=== PATIENT | male | born 1955 | race Two or more races ===

== ENCOUNTER 2024-08-22 13:39 | Inpatient (IN) | payer OTHER, MEDICAID ==
[~2024-08-22] VITALS: Ht 175.3 cm; Wt 81.8 kg
--- NOTE | 2024-08-22 14:16 | ECG ---
[facility] Test Date: 2024-08-22 Test Time: 14:15:40 Pat Name: MARY RO Department: ER Room: 0221T Gender: M Ground Host/Hostess: GP : 1955 Requested By: SHRUTI CALZADA Order Number: [id number] Reading MD: Chris Mora Measurements Intervals [place] Rate: 50 P: -36 OK: 134 QRS: 34 QRSD: 85 T: 17 QT: 511 QTc: 466 Interpretive Statements Sinus rhythm Minimal ST depression, inferior leads Electronically Signed On 08-28-2024 11:16:32 PDT by Chris Mora Please click the below link to view image of tracing.
--- NOTE | 2024-08-22 14:22 | ED.PDOC ---
History of Present Illness HPI Comments 68-year-old male with PMHx DM, HTN, Dialysis presents with a chief complaint of weakness. Patient was just released from [facility] after being there for nearly a week. Patient did not qualify for a SNF after discharge and was instead sent home. Niece states that there is no one at home able to take care of patient. Patient reports feeling weak still and is in need of dialysis today. No other symptoms or modifying factors present at this time. Chief Complaint: General Weakness Time Seen by MD: 13:48 Primary Care Provider: ULICES Allergies: Coded Allergies: NO KNOWN ALLERGIES (Unverified , 08/22/24) Information Source: Patient, Relative Mode of Arrival: Wheelchair Severity: Moderate Timing: Days Duration: Since onset Past Medical History PAST MEDICAL HISTORY: DM, ESRD, HTN Surgical History (Other): left arm avf Family History Family History: Reviewed,noncontributory to illness, No family hx of Cancer, No family hx of DM, No family hx of Heart naeem, No family hx of HTN, No family hx ofKidney naeem, No family hx of Liver naeem, No family hx of Lung naeem, No family hx of Stroke Social History Smoker: Non-Smoker Alcohol: Denies ETOH Use Drugs: Denies Drug Use Constitutional: reports: weakness; denies: chills, diaphoresis, fatigue, fever, malaise, sweats, others EENTM: denies: blurred vision, double vision, ear bleeding, ear discharge, ear drainage, ear pain, ear ringing, eye pain, eye redness, hearing loss, mouth pain, mouth swelling, nasal discharge, nose bleeding, nose congestion, nose pain, photophobia, tearing, throat pain, throat swelling, voice changes, others Respiratory: reports: SOB at rest; denies: cough, hemoptysis, orthopnea, shortness of breath, SOB with excertion, stridor, wheezing, others Cardiovascular: denies: chest pain, dizzy spells, diaphoresis, Dyspnea on exertion, edema, irregular heart beat, left arm pain, lightheadedness, palpitations, PND, syncope, others Gastrointestinal: denies: abdomen distended, abdominal pain, blood streaked bowels, constipated, diarrhea, dysphagia, difficulty swallowing, hematemesis, melena, nausea, poor appetite, poor fluid intake, rectal bleeding, rectal pain, vomiting, others Genitourinary: denies: burning, dysuria, flank pain, frequency, hematuria, incontinence, penile discharge, penile sore, pain, testicle pain, testicle s welling, urgency, others Neurological: denies: dizziness, fainting, headache, left sided numbness, left sided weakness, numbness, paresthesia, pre-existing deficit, right sided numbness, right sided weakness, seizure, speech problems, tingling, tremors, weakness, others Musculoskeletal: denies: back pain, gout, joint pain, joint swelling, muscle pain, muscle stiffness, neck pain, others Integumetry: denies: bruises, change in color, change in hair/nails, dryness, laceration, lesions, lumps, rash, wounds, others Allergic/Immunocompromised: denies: Difficulty Healing, Frequent Infections, Hives, Itching, others Hematologic/Lymphatic: denies: anemia, blood clots, easy bleeding, easy bruising, swollen glands, others Endocrine: denies: excessive hunger, excessive sweating, excessive thirst, excessive urination, flushing, intolerance to cold, intolerance to heat, unexplained weight gain, unexplained weight loss, others Psychiatric: denies: anxiety, bipolar disorder, depression, hopeless, panic disorder, schizophrenia, sleepless, suicidal, others All Other Systems: Reviewed and Negative Physical Exam General Appearance: No Apparent Distress, Normal HEENT: Normal ENT Inspection, Pharynx Normal, TMs Normal Neck: Full Range of Motion, Non-Tender, Normal, Normal Inspection Respiratory: Chest Non-Tender, Lungs Clear, No Accessory Muscle Use, No Respiratory Distress, Normal Breath Sounds Cardiovascular: No Edema, No JVD, No Murmur, No Gallop, Normal Peripheral Pulses, Regular Rate/Rhythm Breast Exam: Deferred Gastrointestinal: No Organomegaly, Non Tender, No Pulsatile Mass, Normal Bowel Sounds, Soft Genitalia: Deferred Pelvic: Deferred Rectal: Deferred Extremities: No calf tenderness, Normal capillary refill, Normal inspection, N ormal range of motion, Non-tender, No pedal edema Musculoskeletal : Apperance: Normal Neurologic: Alert, filter tender II-XII nml as Tested, No Motor Deficits, Normal Affect, Normal Mood, No Sensory Deficits Cerebellar Function: Normal Reflexes: Normal Skin: Dry, Normal Color, Warm, Other (left arm AVF with bruits and thrills) Lymphatic: No Adenopathy Was a procedure done? Was a procedure done?: No Differential Dx Considerations may include: hypotension, failure to thrive, hypoglycemia, electrolyte disorders, arrhythmias X-Ray, Labs, Meds, VS Vital Signs Date Time Temp Pulse Resp B/P (MAP) Pulse Ox O2 Delivery O2 Flow Rate FiO2 08/22/24 16:45 18 95 Nasal Cannula* 2 28 08/22/24 16:10 47 18 92 Nasal Cannula* 2 28 08/22/24 15:58 47 18 97/56 (70) 92 08/22/24 14:15 50 08/22/24 13:39 97.7 51 16 120/60 (80) 93 97.7 Lab Test 08/22/24 14:24 08/22/24 14:12 Range/Units White Blood Count 6.9 4.4-10.8 10^3/uL Red Blood Count 2.73 L 4.5-5.90 10^6/uL Hemoglobin 9.1 L 13.5-17.5 g/dL Hematocrit 26.7 L 41.0-53.0 % Mean Corpuscular Volume 97.8 80.0-100.0 fL Mean Corpuscular Hemoglobin 33.2 H 28.0-32.0 pg Mean Corpuscular Hemoglobin Concent 34.0 32.0-36.0 g/dL Red Cell Distribution Width 14.8 H 11.8-14.3 % Platelet Count 150 140-450 10^3/uL Mean Platelet Volume 8.2 6.9-10.8 fL Neutrophils (%) (Auto) 64.3 37.0-80.0 % Lymphocytes (%) (Auto) 15.6 10.0-50.0 % Monocytes (%) (Auto) 10.2 0.0-12.0 % Eosinophils (%) (Auto) 8.4 H 0.0-7.0 % Basophils (%) (Auto) 1.5 0.0-2.0 % Neutrophils # (Auto) 4.4 1.6-8.6 10 ^3/uL Lymphocytes # (Auto) 1.1 0.4-5.4 10 ^3/uL Monocytes # (Auto) 0.7 0-1.3 10 ^3/uL Eosinophils # (Auto) 0.6 0-0.8 10 ^3/uL Basophils # (Auto) 0.1 0-0.2 10 ^3/uL Nucleated Red Blood Cells 0.1 % Sodium Level 138 136-145 mmol/L Potassium Level 5.9 *H 3.5-5.1 mmol/L Chloride Level 100 98-107 mmol/L Carbon Dioxide Level 27 20-31 mmol/L Anion Gap 11 5-15 Blood Urea Nitrogen 70 H 9-23 mg/dL Creatinine 10.03 *H 0.700-1.30 mg/dL Glomerular Filtration Rate Calc 5 >90 mL/min BUN/Creatinine Ratio 7.0 L 10.0-20.0 Serum Glucose 87 74-106 mg/dL Calcium Level 9.3 8.7-10.4 mg/dL Total Bilirubin < 0.2 L 0.2-1.0 mg/dL Aspartate Amino Transferase (AST) 12 L 13-40 U/L Alanine Aminotransferase (ALT) 13 7-40 U/L Alkaline Phosphatase 101 46-116 U/L Troponin I High Sensitivity 14 </=54 ng/L Total Protein 6.8 5.7-8.2 g/dL Albumin 4.0 3.2-4.8 g/dL POC Glucose 86 70-106 mg/dl Current Medications Medications (Trade) Dose Ordered Sig/Phani Route Start Time Stop Time Status Last Admin Albuterol (Ventolin Medneb) 20 mg ONCE ONCE NEB 08/22/24 16:00 08/22/24 16:33 DC 08/22/24 16:43 Calcium Gluconate/ Sodium Chloride 50 ml @ 120 mls/hr ONCE ONCE IV 08/22/24 16:00 08/22/24 16:33 DC 08/22/24 16:42 Time of 1ST Reevaluation: 16:51 Reevaluation 1ST: Unchanged Consultation: Other (IM, nephrology) Patient Education/Counseling: Diagnosis, Treatment, Prognosis, Need For Follow Up Family Education/Counseling: Diagnosis, Treatment, Prognosis, Need For Follow Up Additional Information pt likely did not get HD before discharge from [facility], as his daughter reported. his weakness is worsened by the hyperkalemia. he also is volume overloaded with CHF. he will need HD, SW to reassess for eventual placement. i Spoke to Dr Barriga, and ordered Dr Pan to be consulted . pt will be admitted Departure 1 Departure Time of Disposition: 16:52 Impression: Primary Impression: Weakness Additional Impressions: CHF (congestive heart failure) Qualified Codes: I50.23 - Acute on chronic systolic (congestive) heart failure ESRF (end stage renal failure) Hyperkalemia Bradycardia Disposition: ADMITTED INPATIENT Admit to: Tele Condition: Serious Discharged With: Self, Relative Critical Care Note Critical Care Time?: Yes (55 min-critical care time only) Critical care comment: due to concerns for patient's condition deteriorating, the care required my highest level of attention and readiness to intervene. i assessed the patient's condition, ordered the proper tests and treatments, reassessed for response and reviewed the results. i communicated with medical personnel and formulated a plan of care. total critical care time does not include any procedures Stability Stability form required: No I personally scribed for SHRUTI CALZADA MD ([email or web address]) on 08/22/24 at 14:22. Electronically submitted by Pedro Pablo Knight ([email or web address]). SHRUTI CALZADA MD August 22, 2024 14:22
[2024-08-22 14:40] LABS: Basophils # (auto) 0.1 10 ^3/uL (0-0.2); Basophils % (auto) 1.5 % (0.0-2.0); Eosinophils # (auto) 0.6 10 ^3/uL (0-0.8); Eosinophils % (auto) 8.4 % (0.0-7.0); Hematocrit 26.7 % (41.0-53.0); Hemoglobin 9.1 g/dL (13.5-17.5); Lymphocytes # (auto) 1.1 10 ^3/uL (0.4-5.4); Lymphocytes % (auto) 15.6 % (10.0-50.0); Mean Corpuscular Hemoglobin 33.2 pg (28.0-32.0); Mean Corpuscular Volume 97.8 fL (80.0-100.0); Monocytes # (auto) 0.7 10 ^3/uL (0-1.3); Monocytes % (auto) 10.2 % (0.0-12.0); Neutrophils # (auto) 4.4 10 ^3/uL (1.6-8.6); Neutrophils % (auto) 64.3 % (37.0-80.0); Nucleated Red Blood Cells % 0.1 %; Platelet Count (auto) 150 10^3/uL (140-450); Red Blood Cells 2.73 10^6/uL (4.5-5.90); Red Cell Distribution Width 14.8 % (11.8-14.3); White Blood Cell 6.9 10^3/uL (4.4-10.8)
--- NOTE | 2024-08-22 14:50 | DVH ---
CHEST RADIOGRAPH Indication: weakness Technique: Single frontal view of the chest was obtained COMPARISON: None FINDINGS: Lines and Tubes: None Lungs: Diffuse increased interstitial prominence Pleura: No effusion. No pneumothorax. Cardiomediastinal contours: Cardiomegaly Bones: Unremarkable IMPRESSION: Pulmonary edema
[2024-08-22 14:58] LABS: Alanine Aminotransferase 13 U/L (7-40); Alkaline Phosphatase 101 U/L (46-116); Anion Gap 11 (5-15); Calcium 9.3 mg/dL (8.7-10.4); Carbon Dioxide 27 mmol/L (20-31); Chloride 100 mmol/L (98-107); Glucose 87 mg/dL (74-106); Sodium 138 mmol/L (136-145); Total Protein 6.8 g/dL (5.7-8.2)
[2024-08-22 15:00] LABS: Aspartate Aminotransferase 12 U/L (13-40); Bilirubin, Total < 0.2 mg/dL (0.2-1.0); Blood Urea Nitrogen 70 mg/dL (9-23)
[2024-08-22 15:01] LABS: Potassium 5.9 mmol/L (3.5-5.1)
[2024-08-22 16:10] VITALS: PULSE 47; RESP 18; O2SAT 92
[2024-08-22] MEDS: CALCIUM GLUC 1,000mg/50ml-NS 50 ML IV ONE (16:42)
[2024-08-22] MEDS: ALBUTEROL SULF 2.5 MG/0.5ML(0.5%) NEB SOLN NEB ONE (16:43)
[2024-08-22] MEDS: DEXTROSE (50%) 50ML SYRG IV ONE ×2 (16:56→20:44)
[2024-08-22] MEDS: SODIUM BICARB 8.4% 50Meq/50ml SYR INJ IV ONE (17:06)
[2024-08-22] MEDS: SODIUM ZIRCONIUM CYCL 10 GM PAK PO ONE (17:14)
[2024-08-22] MEDS ORDERED: ACETAMINOPHEN 325 MG TAB PO PRN (17:30)
[2024-08-22] MEDS ORDERED: MORPHINE SULFATE INJ 2 MG/ml SYRG IV PRN (17:30)
[2024-08-22] MEDS ORDERED: NITROGLYCERIN 0.4 MG SL TAB SL PRN (17:30)
[2024-08-22] MEDS: InsuLIN REG 1unit/0.01ml Soln (100units/ml) IV ONE (17:33)
--- NOTE | 2024-08-22 18:26 | DVHINCON2 ---
Date of service: August 22, [address] Uribe Reason for Consultation End-stage renal disease to manage hemodialysis History of Present Illness Patient is 68-year-old male with past medical history significant for end-stage renal disease on hemodialysis every Wednesday and Wednesday, diabetes mellitus type 2, chronic Congestive heart failure, hypertension and peripheral arterial disease who was recently discharged from [facility] presented to the [facility] with generalized weakness, Nephrology is consulted to manage his hemodialysis Past Medical History PAST MEDICAL HISTORY: DM, ESRD, HTN, chronic Congestive heart failure, Peripheral arterial disease Past Surgical History Left arm avf Allergies: Coded Allergies: NO KNOWN ALLERGIES (Unverified , 08/22/24) Current Medications Current Medications Medications (Trade) Dose Ordered Sig/Phani Route PRN Reason Start Time Stop Time Status Last Admin Acetaminophen (Tylenol Tablet) 325 mg Q4HP PRN PO MILD PAIN (1-3 PAIN SCALE) 08/22/24 17:30 Acetaminophen/ Hydrocodone Bitart ([place] 5/325MG Tab) 1 tab Q4HP PRN PO MODERATE PAIN (4-6 PAIN SCALE) 08/22/24 17:30 Nitroglycerin (Ntrostat Sublingual) 0.4 mg Q5MINP PRN SL FOR CHEST PAIN 08/22/24 17:30 Morphine Sulfate 2 mg Q30M PRN IV FOR CHEST PAIN 08/22/24 17:30 Zirconium Oxide (Lokelma) 10 gm Q8HR PO 08/22/24 22:00 08/23/24 06:41 Midodrine (Proamatine Tablet) 10 mg TID@0600,1200,1800 PO 08/23/24 06:00 08/23/24 06:41 Dextrose/Sodium Chloride 1,000 ml @ 50 mls/hr Q20H IV 08/22/24 20:15 UNV Dextrose 250 ml @ 50 mls/hr Q5H IV 08/22/24 20:15 08/23/24 06:42 Dopamine HCl/ Dextrose 250 ml @ 5.775 mls/ hr Q24H IV 08/22/24 21:00 08/22/24 21:36 DC Dopamine HCl/ Dextrose 250 ml @ 14.438 mls/ hr [id number] IV 08/22/24 21:45 08/22/24 21:36 Norepinephrine Bitartrate 250 ml @ 3.75 mls/hr Q24H IV 08/22/24 21:45 08/22/24 21:51 Review of Systems All 12 item review of systems reviewed with the patient nonsignificant except what is mentioned in the history of present illness H&P Exam Vital Signs/I&O Vital Sign Date Time Temp Pulse Resp B/P (MAP) Pulse Ox O2 Delivery O2 Flow Rate FiO2 08/23/24 10:15 50 142/71 (94) 100 08/23/24 07:00 13 08/23/24 03:00 96.9 96.9 08/22/24 19:41 Nasal Cannula* 2 28 Physical Exam Patient lying comfortably in bed Lungs clear to auscultation bilaterally Cardiac exam regular rate and rhythm GI soft nontender was normal Extremities no clubbing cyanosis or edema Neuro nonfocal Labs/Diagnostic Data Labs/Diagnostic Data Laboratory Tests Test 08/23/24 07:32 08/23/24 06:49 08/23/24 02:56 08/22/24 23:59 Range/Units White Blood Count 7.0 4.4-10.8 10^3/uL Red Blood Count 2.84 L 4.5-5.90 10^6/uL Hemoglobin 9.4 L 13.5-17.5 g/dL Hematocrit 28.0 #L 41.0-53.0 % Mean Corpuscular Volume 98.7 80.0-100.0 fL Mean Corpuscular Hemoglobin 33.2 H 28.0-32.0 pg Mean Corpuscular Hemoglobin Concent 33.6 32.0-36.0 g/dL Red Cell Distribution Width 15.1 H 11.8-14.3 % Platelet Count 148 140-450 10^3/uL Mean Platelet Volume 8.5 6.9-10.8 fL Neutrophils (%) (Auto) 69.8 37.0-80.0 % Lymphocytes (%) (Auto) 12.7 10.0-50.0 % Monocytes (%) (Auto) 11.0 0.0-12.0 % Eosinophils (%) (Auto) 5.4 0.0-7.0 % Basophils (%) (Auto) 1.1 0.0-2.0 % Neutrophils # (Auto) 4.9 1.6-8.6 10 ^3/uL Lymphocytes # (Auto) 0.9 0.4-5.4 10 ^3/uL Monocytes # (Auto) 0.8 0-1.3 10 ^3/uL Eosinophils # (Auto) 0.4 0-0.8 10 ^3/uL Basophils # (Auto) 0.1 0-0.2 10 ^3/uL Nucleated Red Blood Cells 0.0 % Sodium Level 135 #L 136-145 mmol/L Potassium Level 6.1 *H 3.5-5.1 mmol/L Chloride Level 96 L 98-107 mmol/L Carbon Dioxide Level 25 20-31 mmol/L Anion Gap 14 5-15 Blood Urea Nitrogen 72 H 9-23 mg/dL Creatinine 10.33 *H 0.700-1.30 mg/dL Glomerular Filtration Rate Calc 5 >90 mL/min BUN/Creatinine Ratio 7.0 L 10.0-20.0 Serum Glucose 231 #H 74-106 mg/dL Calcium Level 8.7 8.7-10.4 mg/dL Total Bilirubin < 0.2 L 0.2-1.0 mg/dL Aspartate Amino Transferase (AST) 13 13-40 U/L Alanine Aminotransferase (ALT) 11 7-40 U/L Alkaline Phosphatase 94 46-116 U/L Total Protein 6.6 5.7-8.2 g/dL Albumin 3.9 3.2-4.8 g/dL Thyroid Stimulating Hormone (TSH) 3.24 0.55-4.78 uIU/mL POC Glucose 253 H 225 H 185 H 70-106 mg/dl Test 08/22/24 22:35 08/22/24 21:20 08/22/24 21:05 08/22/24 20:47 Range/Units POC Glucose 138 H 123 H 81 70-106 mg/dl White Blood Count 6.1 4.4-10.8 10^3/uL Red Blood Count 2.51 L 4.5-5.90 10^6/uL Hemoglobin 8.3 L 13.5-17.5 g/dL Hematocrit 24.6 L 41.0-53.0 % Mean Corpuscular Volume 98.1 80.0-100.0 fL Mean Corpuscular Hemoglobin 33.2 H 28.0-32.0 pg Mean Corpuscular Hemoglobin Concent 33.9 32.0-36.0 g/dL Red Cell Distribution Width 14.8 H 11.8-14.3 % Platelet Count 135 L 140-450 10^3/uL Mean Platelet Volume 8.6 6.9-10.8 fL Neutrophils (%) (Auto) 58.7 37.0-80.0 % Lymphocytes (%) (Auto) 18.1 10.0-50.0 % Monocytes (%) (Auto) 12.5 H 0.0-12.0 % Eosinophils (%) (Auto) 9.6 H 0.0-7.0 % Basophils (%) (Auto) 1.1 0.0-2.0 % Neutrophils # (Auto) 3.6 1.6-8.6 10 ^3/uL Lymphocytes # (Auto) 1.1 0.4-5.4 10 ^3/uL Monocytes # (Auto) 0.8 0-1.3 10 ^3/uL Eosinophils # (Auto) 0.6 0-0.8 10 ^3/uL Basophils # (Auto) 0.1 0-0.2 10 ^3/uL Nucleated Red Blood Cells 0.1 % Sodium Level 140 136-145 mmol/L Potassium Level 5.3 H 3.5-5.1 mmol/L Chloride Level 99 98-107 mmol/L Carbon Dioxide Level 29 20-31 mmol/L Anion Gap 12 5-15 Blood Urea Nitrogen 70 H 9-23 mg/dL Creatinine 10.22 *H 0.700-1.30 mg/dL Glomerular Filtration Rate Calc 5 >90 mL/min BUN/Creatinine Ratio 6.8 L 10.0-20.0 Serum Glucose 110 H 74-106 mg/dL Calcium Level 9.0 8.7-10.4 mg/dL Total Bilirubin 0.2 0.2-1.0 mg/dL Aspartate Amino Transferase (AST) 12 L 13-40 U/L Alanine Aminotransferase (ALT) 11 7-40 U/L Alkaline Phosphatase 87 46-116 U/L Total Protein 6.1 5.7-8.2 g/dL Albumin 3.6 3.2-4.8 g/dL Test 08/22/24 20:20 08/22/24 20:01 08/22/24 19:54 08/22/24 17:28 Range/Units Blood Gas Specimen Type Arterial Blood Gas Sample Site Right brachial Blood Gas Patient Temperature 37.0 Arterial Blood Date Drawn [id number] Arterial Blood pH 7.377 7.350-7.450 Arterial Blood Partial Pressure CO2 43.5 35.0-48.0 mmHg Arterial Blood Partial Pressure O2 78.3 L 83.0-108.0 mmHg Arterial Blood HCO3 25.0 21.0-28.0 mmol/L Arterial Blood Oxygen Saturation 93.4 L 94.0-98.0 % Arterial Blood Base Excess -0.2 -2.0-3.0 mmol/L Arterial Blood Oxyhemoglobin 91.8 L 94.0-98.0 % Arterial Blood Carboxyhemoglobin 1.1 0.5-1.5 % Arterial Blood Methemoglobin 0.6 0.0-1.5 % Franklyn Test Yes Blood Gas Total Hemoglobin 8.80 L 13.5-17.5 g/dL Blood Gas Liter Flow 4.00 Blood Gas Modality Nasal cannula FiO2 % 36.0 POC Glucose 155 H 21 *L 158 H 70-106 mg/dl Test 08/22/24 16:52 08/22/24 14:24 08/22/24 14:12 Range/Units POC Glucose 83 86 70-106 mg/dl White Blood Count 6.9 4.4-10.8 10^3/uL Red Blood Count 2.73 L 4.5-5.90 10^6/uL Hemoglobin 9.1 L 13.5-17.5 g/dL Hematocrit 26.7 L 41.0-53.0 % Mean Corpuscular Volume 97.8 80.0-100.0 fL Mean Corpuscular Hemoglobin 33.2 H 28.0-32.0 pg Mean Corpuscular Hemoglobin Concent 34.0 32.0-36.0 g/dL Red Cell Distribution Width 14.8 H 11.8-14.3 % Platelet Count 150 140-450 10^3/uL Mean Platelet Volume 8.2 6.9-10.8 fL Neutrophils (%) (Auto) 64.3 37.0-80.0 % Lymphocytes (%) (Auto) 15.6 10.0-50.0 % Monocytes (%) (Auto) 10.2 0.0-12.0 % Eosinophils (%) (Auto) 8.4 H 0.0-7.0 % Basophils (%) (Auto) 1.5 0.0-2.0 % Neutrophils # (Auto) 4.4 1.6-8.6 10 ^3/uL Lymphocytes # (Auto) 1.1 0.4-5.4 10 ^3/uL Monocytes # (Auto) 0.7 0-1.3 10 ^3/uL Eosinophils # (Auto) 0.6 0-0.8 10 ^3/uL Basophils # (Auto) 0.1 0-0.2 10 ^3/uL Nucleated Red Blood Cells 0.1 % Sodium Level 138 136-145 mmol/L Potassium Level 5.9 *H 3.5-5.1 mmol/L Chloride Level 100 98-107 mmol/L Carbon Dioxide Level 27 20-31 mmol/L Anion Gap 11 5-15 Blood Urea Nitrogen 70 H 9-23 mg/dL Creatinine 10.03 *H 0.700-1.30 mg/dL Glomerular Filtration Rate Calc 5 >90 mL/min BUN/Creatinine Ratio 7.0 L 10.0-20.0 Serum Glucose 87 74-106 mg/dL Hemoglobin A1c 6.1 H <5.7 % A1C Calcium Level 9.3 8.7-10.4 mg/dL Phosphorus Level 8.2 H 2.4-5.1 mg/dL Total Bilirubin < 0.2 L 0.2-1.0 mg/dL Aspartate Amino Transferase (AST) 12 L 13-40 U/L Alanine Aminotransferase (ALT) 13 7-40 U/L Alkaline Phosphatase 101 46-116 U/L Troponin I High Sensitivity 14 </=54 ng/L B-Type Natriuretic Peptide 2047.19 0-100 pg/mL Total Protein 6.8 5.7-8.2 g/dL Albumin 4.0 3.2-4.8 g/dL Hepatitis B Surface Antigen Negative Negative Assessment End-stage renal disease on hemodialysis Generalized weakness Hypotension Bradycardia Chronic Congestive heart failure Hyperkalemia due to dietary indiscretion Diabetes mellitus type 2 Anemia of chronic kidney disease Recommendations Emergent medical treatment for hyperkalemia Lokelma 10 g p.o. q.8 hours Midodrine 10 mg p.o. t.i.d. Urgent hemodialysis Epogen [id number] subQ 3 times weekly Renal diet Cardiology consult We will continue to follow Patient seen and examined by myself in the ER. I discussed my plan of care with the patient and primary nurse at the bed side I would like to thank Dr. Uribe for the consult, will follow up Plan discussed with: Patient YVONNE JONES MD August 22, 2024 18:26
[2024-08-22 19:41] VITALS: PULSE 52; RESP 19; O2SAT 92
[2024-08-22] MEDS ORDERED: D5W/SOD CHLO 0.9% 1,000 ML IV SCH (20:15)
[2024-08-22] MEDS: DEXTROSE 50% SYRINGE 50 ML IV ONE (20:22)
[2024-08-22 20:30] LABS: Base Excess -0.2 mmol/L (-2.0-3.0)
[2024-08-22] MEDS: GLUCAGON EMERG KIT 1mg/1ml IV ONE ×2 (20:44→21:00)
[2024-08-22] MEDS: D5W 5% 250 ML IV SCH (20:44)
[2024-08-22] MEDS: DOPamine 1600MCG/ML D5W 250 ML IV ONE (20:51)
--- NOTE | 2024-08-22 20:57 | DVH ---
CHEST RADIOGRAPH Indication: R/O ASPIRATION Technique: Single frontal view of the chest was obtained Comparison: XY CHEST PORTABLE on DOS: 08/22/24 FINDINGS: Lines and Tubes: None Lungs: Diffuse interstitial prominence with obscuration of the left hemidiaphragm and indistinctness of the right hemidiaphragm. Blunting the bilateral costophrenic angles. Pleura: No effusion. No pneumothorax. Cardiomediastinal contours: Moderate cardiomegaly Bones: No acute osseous abnormality. IMPRESSION: Cardiomegaly with findings suggestive of congestive heart failure s and mall bilateral pleural effusi ons. Underlying infectious process can not be excluded.
[2024-08-22] MEDS ORDERED: DOPamine 1600MCG/ML D5W 250 ML IV SCH (21:00)
[2024-08-22] MEDS: SODIUM BICARB 8.4% 50Meq/50ml SYR Vial IV ONE (21:07)
[2024-08-22] MEDS: SODIUM BICARB 8.4% 50Meq/50ml SYR INJ ONE (21:08)
[2024-08-22] MEDS: FUROSEMIDE 40 MG/4 ML VIAL IV ONE (21:15)
[2024-08-22 21:19] LABS: Basophils # (auto) 0.1 10 ^3/uL (0-0.2); Basophils % (auto) 1.1 % (0.0-2.0); Eosinophils # (auto) 0.6 10 ^3/uL (0-0.8); Eosinophils % (auto) 9.6 % (0.0-7.0); Hematocrit 24.6 % (41.0-53.0); Hemoglobin 8.3 g/dL (13.5-17.5); Lymphocytes # (auto) 1.1 10 ^3/uL (0.4-5.4); Lymphocytes % (auto) 18.1 % (10.0-50.0); Mean Corpuscular Hemoglobin 33.2 pg (28.0-32.0); Mean Corpuscular Hgb Conc. 33.9 g/dL (32.0-36.0); Mean Corpuscular Volume 98.1 fL (80.0-100.0); Monocytes # (auto) 0.8 10 ^3/uL (0-1.3); Monocytes % (auto) 12.5 % (0.0-12.0); Neutrophils # (auto) 3.6 10 ^3/uL (1.6-8.6); Neutrophils % (auto) 58.7 % (37.0-80.0); Nucleated Red Blood Cells % 0.1 %; Platelet Count (auto) 135 10^3/uL (140-450); Red Blood Cells 2.51 10^6/uL (4.5-5.90); Red Cell Distribution Width 14.8 % (11.8-14.3); White Blood Cell 6.1 10^3/uL (4.4-10.8)
[2024-08-22 21:35] LABS: Alanine Aminotransferase 11 U/L (7-40); Albumin 3.6 g/dL (3.2-4.8); Alkaline Phosphatase 87 U/L (46-116); Anion Gap 12 (5-15); BUN/Creatinine Ratio 6.8 (10.0-20.0); Carbon Dioxide 29 mmol/L (20-31); Chloride 99 mmol/L (98-107); Sodium 140 mmol/L (136-145); Total Protein 6.1 g/dL (5.7-8.2)
[2024-08-22] MEDS: DOPamine 1600MCG/ML D5W 250 ML IV SCH (21:36)
[2024-08-22 21:39] LABS: Aspartate Aminotransferase 12 U/L (13-40); Bilirubin, Total 0.2 mg/dL (0.2-1.0); Blood Urea Nitrogen 70 mg/dL (9-23); Glucose 110 mg/dL (74-106); Potassium 5.3 mmol/L (3.5-5.1)
[2024-08-22] MEDS: SODIUM ZIRCONIUM CYCL 10 GM PAK PO SCH (21:51)
[2024-08-22] MEDS: NOREPINEPHRINE 8 MG/250ML KIT 250 ML IV SCH (21:51)
[2024-08-23] VITALS (67 sets, daily range): BP systolic 108–190; BP diastolic 59–93; PULSE 48–73; RESP 11–22; TEMP 98.3–98.6; O2SAT 92–100
[2024-08-23] MEDS: MIDODRINE HCL 10 MG TAB PO SCH (06:41)
[2024-08-23 07:44] LABS: Basophils # (auto) 0.1 10 ^3/uL (0-0.2); Basophils % (auto) 1.1 % (0.0-2.0); Eosinophils # (auto) 0.4 10 ^3/uL (0-0.8); Eosinophils % (auto) 5.4 % (0.0-7.0); Hemoglobin 9.4 g/dL (13.5-17.5); Lymphocytes # (auto) 0.9 10 ^3/uL (0.4-5.4); Lymphocytes % (auto) 12.7 % (10.0-50.0); Mean Corpuscular Hemoglobin 33.2 pg (28.0-32.0); Mean Corpuscular Hgb Conc. 33.6 g/dL (32.0-36.0); Mean Corpuscular Volume 98.7 fL (80.0-100.0); Monocytes # (auto) 0.8 10 ^3/uL (0-1.3); Neutrophils # (auto) 4.9 10 ^3/uL (1.6-8.6); Neutrophils % (auto) 69.8 % (37.0-80.0); Platelet Count (auto) 148 10^3/uL (140-450); Red Blood Cells 2.84 10^6/uL (4.5-5.90); Red Cell Distribution Width 15.1 % (11.8-14.3)
[2024-08-23 08:31] LABS: Alanine Aminotransferase 11 U/L (7-40); Albumin 3.9 g/dL (3.2-4.8); Alkaline Phosphatase 94 U/L (46-116); Aspartate Aminotransferase 13 U/L (13-40); Bilirubin, Total < 0.2 mg/dL (0.2-1.0); Blood Urea Nitrogen 72 mg/dL (9-23); Calcium 8.7 mg/dL (8.7-10.4); Carbon Dioxide 25 mmol/L (20-31); Glucose 231 mg/dL (74-106); Total Protein 6.6 g/dL (5.7-8.2)
[2024-08-23 08:46] LABS: Sodium 135 mmol/L (136-145)
[2024-08-23 08:47] LABS: Anion Gap 14 (5-15); Chloride 96 mmol/L (98-107)
[2024-08-23 08:51] LABS: Potassium 6.1 mmol/L (3.5-5.1)
--- NOTE | 2024-08-23 10:28 | DVHINCON2 ---
Date of service: August 22, [address] velasquez Reason for Consultation resp failure History of Present Illness HPI Patient is a 68-year-old gentleman with multiple medical problems including end- stage renal disease Diabetes high blood pressure he was recently discharged from [facility]. The patient returned to the emergency room with generalized weakness increasing shortness a breath. In the ER he had an arterial blood gas on 4 L of oxygen pH 7.37 pCO2 43 PO2 78 pubic chest x-ray shows bilateral pleural effusions and underlying atelectasis cardiomegaly pulmonary edema. Patient seen and examined in the emergency room Past Medical History Cardiac: CHF, HTN Pulmonary: No pertinent Hx Central Nervous System: No pertinent Hx GI: No pertinent Hx Hemotology/Oncology: No pertinent Hx Hepatobiliary: No pertinent Hx Psychiatric: No pertinent Hx Musculoskeletal: No pertinent Hx Rheumotologic: No pertinent Hx Infectious Disease: No peritnent Hx ENT: No pertinent Hx Endocrine: No pertinent Hx Dermatology: No pertinent Hx Past Surgical History: No pertinent Hx Family History: No pertinent Hx Smoker: No Hx (Negative) Review of Systems Constitutional: Malaise, Weakness Ears, Nose, & Throat: No symptom reported Eyes: No symptom reported Pulmonary/Respiratory: Dyspnea, Cough Cardiovascular: Paroxysmal Noc. Dyspnea, Edema Gastrointestinal: No symptom reported Genitourinary: No symptom reported Musculoskeletal: No symptom reported Skin: No symptom reported Psychiatric: No symptom reported Endocrine: No symptom reported Hemotologic/Lymphatic: No symptom reported H&P Exam Vital Signs Vital Signs Date Time Temp Pulse Resp B/P (MAP) Pulse Ox O2 Delivery O2 Flow Rate FiO2 08/23/24 07:00 59 13 115/59 (77) 96 08/23/24 03:00 96.9 96.9 08/22/24 19:41 Nasal Cannula* 2 28 General Appeara: Well developed, Well nourished Head Exam: Normal inspection Neck Exam: Normal inspection, Non-tender Eye Exam: bilateral eye Normal inspection, bilateral eye PERRL Ear Exam: bilateral ear Auricle normal, bilateral ear Canal normal Nasal Exam: Normal inspection Mouth: Normal Inspection Pulmonary/Respiratory: Normal inspection, Normal breath sounds Cardiovascular/Chest: Edema, Regular rate Peripheral Pulses: 4+ carotid (R), 4+ carotid (L) Abdominal Exam: Normal bowel sounds Rectal Exam: Deferred Labs/Xrays Labs Test 08/23/24 07:32 5/21/25 06:49 08/22/24 20:20 08/22/24 14:24 Range/Units White Blood Count 7.0 4.4-10.8 10^3/uL Red Blood Count 2.84 L 4.5-5.90 10^6/uL Hemoglobin 9.4 L 13.5-17.5 g/dL Hematocrit 28.0 #L 41.0-53.0 % Mean Corpuscular Volume 98.7 80.0-100.0 fL Mean Corpuscular Hemoglobin 33.2 H 28.0-32.0 pg Mean Corpuscular Hemoglobin Concent 33.6 32.0-36.0 g/dL Red Cell Distribution Width 15.1 H 11.8-14.3 % Platelet Count 148 140-450 10^3/uL Mean Platelet Volume 8.5 6.9-10.8 fL Neutrophils (%) (Auto) 69.8 37.0-80.0 % Lymphocytes (%) (Auto) 12.7 10.0-50.0 % Monocytes (%) (Auto) 11.0 0.0-12.0 % Eosinophils (%) (Auto) 5.4 0.0-7.0 % Basophils (%) (Auto) 1.1 0.0-2.0 % Neutrophils # (Auto) 4.9 1.6-8.6 10 ^3/uL Lymphocytes # (Auto) 0.9 0.4-5.4 10 ^3/uL Monocytes # (Auto) 0.8 0-1.3 10 ^3/uL Eosinophils # (Auto) 0.4 0-0.8 10 ^3/uL Basophils # (Auto) 0.1 0-0.2 10 ^3/uL Nucleated Red Blood Cells 0.0 % Sodium Level 135 #L 136-145 mmol/L Potassium Level 6.1 *H 3.5-5.1 mmol/L Chloride Level 96 L 98-107 mmol/L Carbon Dioxide Level 25 20-31 mmol/L Anion Gap 14 5-15 Blood Urea Nitrogen 72 H 9-23 mg/dL Creatinine 10.33 *H 0.700-1.30 mg/dL Glomerular Filtration Rate Calc 5 >90 mL/min BUN/Creatinine Ratio 7.0 L 10.0-20.0 Serum Glucose 231 #H 74-106 mg/dL Calcium Level 8.7 8.7-10.4 mg/dL Total Bilirubin < 0.2 L 0.2-1.0 mg/dL Aspartate Amino Transferase (AST) 13 13-40 U/L Alanine Aminotransferase (ALT) 11 7-40 U/L Alkaline Phosphatase 94 46-116 U/L Total Protein 6.6 5.7-8.2 g/dL Albumin 3.9 3.2-4.8 g/dL Thyroid Stimulating Hormone (TSH) 3.24 0.55-4.78 uIU/mL POC Glucose 253 H 70-106 mg/dl Blood Gas Specimen Type Arterial Blood Gas Sample Site Right brachial Blood Gas Patient Temperature 37.0 Arterial Blood Date Drawn Arterial Blood pH 7.377 7.350-7.450 Arterial Blood Partial Pressure CO2 43.5 35.0-48.0 mmHg Arterial Blood Partial Pressure O2 78.3 L 83.0-108.0 mmHg Arterial Blood HCO3 25.0 21.0-28.0 mmol/L Arterial Blood Oxygen Saturation 93.4 L 94.0-98.0 % Arterial Blood Base Excess -0.2 -2.0-3.0 mmol/L Arterial Blood Oxyhemoglobin 91.8 L 94.0-98.0 % Arterial Blood Carboxyhemoglobin 1.1 0.5-1.5 % Arterial Blood Methemoglobin 0.6 0.0-1.5 % Franklyn Test Yes Blood Gas Total Hemoglobin 8.80 L 13.5-17.5 g/dL Blood Gas Liter Flow 4.00 Blood Gas Modality Nasal cannula FiO2 % 36.0 Hemoglobin A1c 6.1 H <5.7 % A1C Phosphorus Level 8.2 H 2.4-5.1 mg/dL Troponin I High Sensitivity 14 </=54 ng/L B-Type Natriuretic Peptide 2047.19 0-100 pg/mL Assessment/Plan Plan Diagnoses Acute hypoxemic respiratory failure Pleural effusions Congestive heart failure Pulmonary edema Patient seen and examined in the emergency room Fall respiratory status tenuous Labs and imaging studies reviewed ABG pH 7.37 pCO2 43 PO2 78 Recommendations/management plan supplemental oxygen keep sats above 90% Alternate with the use bicarb p.r.n. for increased work of breathing Titrate settings to keep O2 sats above 90% Dialysis and fluid removal Monitor renal function replace electrolytes Bronchodilators Supportive care If no improvement in respiratory status we will consider thoracentesis with ultrasound guidance We will follow-up Critical care time 35 minutes Plan discussed with: Patient, Spouse HARSH GARVIN MD August 23, 2024 10:28
--- NOTE | 2024-08-23 10:33 | DVHPN2 ---
Progress Note - Dictate Date Seen: August 23, 2024 Medical Necessity Reason Pt with a Central, PICC or Fol: No vital signs Vital Sign Date Time Temp Pulse Resp B/P (MAP) Pulse Ox O2 Delivery O2 Flow Rate FiO2 08/23/24 07:00 59 13 115/59 (77) 96 08/23/24 03:00 96.9 96.9 08/22/24 19:41 Nasal Cannula* 2 28 medications Current Medications Medications Dose Ordered Sig/Phani Route Start Time Stop Time Status Last Admin Dose Admin Acetaminophen 325 mg Q4HP PRN PO 08/22/24 17:30 Acetaminophen/ Hydrocodone Bitart 1 tab Q4HP PRN PO 08/22/24 17:30 Nitroglycerin 0.4 mg Q5MINP PRN SL 08/22/24 17:30 Morphine Sulfate 2 mg Q30M PRN IV 08/22/24 17:30 Zirconium Oxide 10 gm Q8HR PO 08/22/24 22:00 08/23/24 06:41 10 GM Midodrine 10 mg TID@0600,1200,1800 PO 08/23/24 06:00 08/23/24 06:41 10 MG Dextrose/Sodium Chloride 1,000 ml @ 50 mls/hr Q20H IV 08/22/24 20:15 UNV Dextrose 250 ml @ 50 mls/hr Q5H IV 08/22/24 20:15 08/23/24 06:42 50 MLS/HR Dopamine HCl/ Dextrose 250 ml @ 14.438 mls/ hr [id number] IV 08/22/24 21:45 08/22/24 21:36 5.775 MLS/HR Norepinephrine Bitartrate 250 ml @ 3.75 mls/hr Q24H IV 08/22/24 21:45 08/22/24 21:51 15 MLS/HR laboratory and microbiology Laboratory Tests 08/23/24 07:32 Test 08/23/24 07:32 Range/Units Serum Glucose 231 #H 74-106 mg/dL Assessment/Plan Diagnoses Acute hypoxemic respiratory failure Pleural effusions Congestive heart failure Pulmonary edema Patient seen and examined in the emergency room events undergoing HD with fluid removal on f/mask vs stable no distress Fall respiratory status tenuous Labs and imaging studies reviewed ABG pH 7.37 pCO2 43 PO2 78 Recommendations/management plan cont HD Monitor renal function replace electrolytes supplemental oxygen keep sats above 90% prn bipap Titrate settings to keep O2 sats above 90% ok to withold abx Bronchodilators Supportive care If no improvement in respiratory status we will consider thoracentesis with ultrasound guidance Critical care time 35 minutes Plan discussed with: Patient Critical Care Time(min): 35 HARSH GARVIN MD August 23, 2024 10:33
[2024-08-23] MEDS: SODIUM CHL 0.9% 1000 ML BAG XX ONE (11:00)
--- NOTE | 2024-08-23 11:21 | DVHPN2 ---
Progress Note Date Seen: August 23, 2024 Medical Necessity Reason Pt with a Central, PICC or Fol: No Subjective Patient reports: No new complaints Other Systems: Patient seen and examined by myself today in follow-up Patient examined hemodialysis, blood pressure stable Objective vital signs Vital Sign Date Time Temp Pulse Resp B/P (MAP) Pulse Ox O2 Delivery O2 Flow Rate FiO2 08/23/24 10:15 50 142/71 (94) 100 08/23/24 07:00 13 08/23/24 03:00 96.9 96.9 08/22/24 19:41 Nasal Cannula* 2 28 medications Current Medications Medications Dose Ordered Sig/Phani Route Start Time Stop Time Status Last Admin Dose Admin Acetaminophen 325 mg Q4HP PRN PO 08/22/24 17:30 Acetaminophen/ Hydrocodone Bitart 1 tab Q4HP PRN PO 08/22/24 17:30 Nitroglycerin 0.4 mg Q5MINP PRN SL 08/22/24 17:30 Morphine Sulfate 2 mg Q30M PRN IV 08/22/24 17:30 Zirconium Oxide 10 gm Q8HR PO 08/22/24 22:00 08/23/24 06:41 Midodrine 10 mg TID@0600,1200,1800 PO 08/23/24 06:00 08/23/24 06:41 Dextrose/Sodium Chloride 1,000 ml @ 50 mls/hr Q20H IV 08/22/24 20:15 UNV Dextrose 250 ml @ 50 mls/hr Q5H IV 08/22/24 20:15 08/23/24 06:42 Dopamine HCl/ Dextrose 250 ml @ 14.438 mls/ hr [id number] IV 08/22/24 21:45 08/22/24 21:36 Norepinephrine Bitartrate 250 ml @ 3.75 mls/hr Q24H IV 08/22/24 21:45 08/22/24 21:51 Examination: LUNGS:Normal, CVS:Normal, MSK:Normal laboratory and microbiology Laboratory Tests 08/23/24 07:32 Test 08/23/24 07:32 Range/Units Serum Glucose 231 #H 74-106 mg/dL Problem List/Assessment/Plan Problem List/Assessment/Plan End-stage renal disease on hemodialysis Generalized weakness Hypotension Bradycardia Chronic Congestive heart failure Hyperkalemia due to dietary indiscretion Diabetes mellitus type 2 Anemia of chronic kidney disease Recommendations Continue with UF 3-4 L as tolerated Epogen 91260 subQ 3 times weekly Midodrine 10 mg p.o. t.i.d. Insulin sliding scale Renal diet Cardiology consult We will continue to follow Plan discussed with: Patient My Orders My Orders Orders - YVONNE JONES MD Procedure Category Date Status Time Hemodialysis Orders ORDERS 08/23/24 Transmitted 07:00 Dialysis Nursing LEXIS 08/23/24 In Process Message 07:00 Document Fluid Input LEXIS 08/23/24 In Process And Outpu 07:00 Epoetin Daniel-Epbx PHA 08/23/24 In Process (Retacrit) 21:00 Osmolality Urine LAB 08/22/24 Logged 18:18 Midodrine Tablet PHA 08/23/24 In Process (Proamatine Tablet) 06:00 YVONNE JONES MD August 23, 2024 11:21
--- NOTE | 2024-08-23 11:41 | DVHHP2 ---
Admitting Diagnosis: Generalized Weakness History of Present Illness HPI Patient is a 68-year-old male medical history of ESRD on HD, history of type 2 diabetes, history of hypertension history of gout who presented with generalized weakness and shortness of breath. Patient was recently discharged today prior from [facility] to home. Patient did not meet SNF criteria at the time. Upon arrival to home, patient was incredibly weak, short of breath and lethargic. Patient arrived to the ER and noted to be bradycardic to the 50s. Initially blood pressure was within normal limits but patient progressively became hypotensive with systolic blood pressure in the 80s. In discussion with his niece, it is unclear if the patient took too much beta- blockers. Patient was started on dopamine drip and titrated up but remained persistently hypotensive. Patient's presentation was not consistent with sepsis or septic shock as he did not have any leukocytosis, fever and imaging did not suggest underlying pneumonia. Presentation was consistent with complications from hyperkalemia and possible underlying excessive beta scottie overdose. Patient was given glucagon, in addition to temporizing measures for his potassium of 5.9 on admission. EKG did not show any peaked T waves but did show a prolonged QT interval consistent with hyperkalemia. Chest x-ray showed pulmonary vascular congestion and patient was placed on 2 L nasal cannula. Patient was ultimately placed on Levophed and upgraded to ICU due to persistent hypotension. Past Medical History Cardiac: HTN Renal/: ESRD HD/PD Review of Systems Pulmonary/Respiratory: Dyspnea, Cough H&P Exam Vital Signs Vital Signs Date Time Temp Pulse Resp B/P (MAP) Pulse Ox O2 Delivery O2 Flow Rate FiO2 08/23/24 10:15 50 142/71 (94) 100 08/23/24 07:00 13 08/23/24 03:00 96.9 96.9 08/22/24 19:41 Nasal Cannula* 2 28 General Appeara: Mild distress Pulmonary/Respiratory: Crackles Cardiovascular/Chest: Bradycardia Eye contact/ Speech: Cooperative Labs/Xrays Labs Test 08/23/24 07:32 08/23/24 06:49 08/22/24 20:20 08/22/24 14:24 Range/Units White Blood Count 7.0 4.4-10.8 10^3/uL Red Blood Count 2.84 L 4.5-5.90 10^6/uL Hemoglobin 9.4 L 13.5-17.5 g/dL Hematocrit 28.0 #L 41.0-53.0 % Mean Corpuscular Volume 98.7 80.0-100.0 fL Mean Corpuscular Hemoglobin 33.2 H 28.0-32.0 pg Mean Corpuscular Hemoglobin Concent 33.6 32.0-36.0 g/dL Red Cell Distribution Width 15.1 H 11.8-14.3 % Platelet Count 148 140-450 10^3/uL Mean Platelet Volume 8.5 6.9-10.8 fL Neutrophils (%) (Auto) 69.8 37.0-80.0 % Lymphocytes (%) (Auto) 12.7 10.0-50.0 % Monocytes (%) (Auto) 11.0 0.0-12.0 % Eosinophils (%) (Auto) 5.4 0.0-7.0 % Basophils (%) (Auto) 1.1 0.0-2.0 % Neutrophils # (Auto) 4.9 1.6-8.6 10 ^3/uL Lymphocytes # (Auto) 0.9 0.4-5.4 10 ^3/uL Monocytes # (Auto) 0.8 0-1.3 10 ^3/uL Eosinophils # (Auto) 0.4 0-0.8 10 ^3/uL Basophils # (Auto) 0.1 0-0.2 10 ^3/uL Nucleated Red Blood Cells 0.0 % Sodium Level 135 #L 136-145 mmol/L Potassium Level 6.1 *H 3.5-5.1 mmol/L Chloride Level 96 L 98-107 mmol/L Carbon Dioxide Level 25 20-31 mmol/L Anion Gap 14 5-15 Blood Urea Nitrogen 72 H 9-23 mg/dL Creatinine 10.33 *H 0.700-1.30 mg/dL Glomerular Filtration Rate Calc 5 >90 mL/min BUN/Creatinine Ratio 7.0 L 10.0-20.0 Serum Glucose 231 #H 74-106 mg/dL Calcium Level 8.7 8.7-10.4 mg/dL Total Bilirubin < 0.2 L 0.2-1.0 mg/dL Aspartate Amino Transferase (AST) 13 13-40 U/L Alanine Aminotransferase (ALT) 11 7-40 U/L Alkaline Phosphatase 94 46-116 U/L Total Protein 6.6 5.7-8.2 g/dL Albumin 3.9 3.2-4.8 g/dL Thyroid Stimulating Hormone (TSH) 3.24 0.55-4.78 uIU/mL POC Glucose 253 H 70-106 mg/dl Blood Gas Specimen Type Arterial Blood Gas Sample Site Right brachial Blood Gas Patient Temperature 37.0 Arterial Blood Date Drawn Arterial Blood pH 7.377 7.350-7.450 Arterial Blood Partial Pressure CO2 43.5 35.0-48.0 mmHg Arterial Blood Partial Pressure O2 78.3 L 83.0-108.0 mmHg Arterial Blood HCO3 25.0 21.0-28.0 mmol/L Arterial Blood Oxygen Saturation 93.4 L 94.0-98.0 % Arterial Blood Base Excess -0.2 -2.0-3.0 mmol/L Arterial Blood Oxyhemoglobin 91.8 L 94.0-98.0 % Arterial Blood Carboxyhemoglobin 1.1 0.5-1.5 % Arterial Blood Methemoglobin 0.6 0.0-1.5 % Franklyn Test Yes Blood Gas Total Hemoglobin 8.80 L 13.5-17.5 g/dL Blood Gas Liter Flow 4.00 Blood Gas Modality Nasal cannula FiO2 % 36.0 Hemoglobin A1c 6.1 H <5.7 % A1C Phosphorus Level 8.2 H 2.4-5.1 mg/dL Troponin I High Sensitivity 14 </=54 ng/L B-Type Natriuretic Peptide 2047.19 0-100 pg/mL Hepatitis B Surface Antigen Negative Negative Assessment/Plan Primary Diagnosis 1. Generalized Weakness 2' Diagnosis/Co-morbidities 2. Hyperkalemia 3. Acute Respiratory Failure due to Pulmonary Vascular Congestion 4. ESRD on HD 5. Sinus Bradycardia 6. Hypotension likely due to excessive beta-scottie overdose 7. Hypoglycemia - Admit to ICU - Levophed weaned off as of this a.m. - Dopamine weaned from 4 to 2mg per hour - Nephrology for ESRD on HD with missed dialysis session. Planned for HD today - Pulmonary consulted for acute respiratory failure. Lasix 40 mg IV given x 1 - Strict I's and O's - Low suspicion for underlying infection at this time. WBC within normal limits. No fever. Chest x-ray consistent with pulmonary vascular congestion secondary to fluid overload - Cardiology consulted for bradycardia - TTE pending -Accuchecks Q6H. Goal glucose 140-180 in hospital. D5W discontinued. - Full code -Protonix 40mg IV daily Plan discussed with: Patient PILOSOHA FRANKLINAniyah Gomez DO August 23, 2024 11:41
[2024-08-23] MEDS: PIPERACILLIN-TAZOB 2.25GM 50 ML IV SCH (15:14)
[2024-08-23] MEDS: HYDROcodone-ACET 5/325MG TAB PO PRN (16:11)
[2024-08-23] MEDS ORDERED: hydrALAZINE HCL 20 MG/ML VL IV PRN (19:15)
[2024-08-23] MEDS ORDERED: DEXTROSE (50%) 50ML SYRG IV PRN (19:15)
[2024-08-23] MEDS: ACCU-CHEK COMFORT CURVE STRIP VI SCH (19:15)
[2024-08-23] MEDS: InsuLIN REG 1unit/0.01ml Soln (100units/ml) SC SCH (19:19)
[2024-08-23] MEDS: EPOETIN ALFA-EPBX 10,000 UNIT/1ML VIAL SC ONE (21:00)
[2024-08-24] VITALS: PULSE 60; PULSE 64; RESP 15; RESP 16; O2SAT 95; O2SAT 96
[2024-08-24 05:26] LABS: Basophils # (auto) 0.1 10 ^3/uL (0-0.2); Basophils % (auto) 1.1 % (0.0-2.0); Eosinophils # (auto) 0.8 10 ^3/uL (0-0.8); Eosinophils % (auto) 10.3 % (0.0-7.0); Hematocrit 27.4 % (41.0-53.0); Hemoglobin 9.2 g/dL (13.5-17.5); Lymphocytes # (auto) 1.4 10 ^3/uL (0.4-5.4); Lymphocytes % (auto) 17.2 % (10.0-50.0); Mean Corpuscular Hgb Conc. 33.8 g/dL (32.0-36.0); Mean Corpuscular Volume 97.8 fL (80.0-100.0); Monocytes # (auto) 0.9 10 ^3/uL (0-1.3); Neutrophils # (auto) 4.9 10 ^3/uL (1.6-8.6); Neutrophils % (auto) 60.4 % (37.0-80.0); Platelet Count (auto) 164 10^3/uL (140-450); Red Cell Distribution Width 14.8 % (11.8-14.3); White Blood Cell 8.2 10^3/uL (4.4-10.8)
[2024-08-24 05:30] LABS: Anion Gap 12 (5-15); Carbon Dioxide 30 mmol/L (20-31); Potassium 4.7 mmol/L (3.5-5.1); Sodium 138 mmol/L (136-145)
[2024-08-24 05:33] LABS: Calcium 8.1 mg/dL (8.7-10.4); Chloride 96 mmol/L (98-107)
[2024-08-24 05:36] LABS: BUN/Creatinine Ratio 6.2 (10.0-20.0)
[2024-08-24 05:41] LABS: Blood Urea Nitrogen 50 mg/dL (9-23); Glucose 172 mg/dL (74-106)
--- NOTE | 2024-08-24 07:43 | DVHDS2 ---
New Physician D'charge PN Admitting Diagnosis Admitting Diagnosis weakness Discharge Diagnosis weakness esrd on hd Operations or Procedures none Reason(s) For Hospitalization Surgery Hospital Course 68 M who comes to ER for weakness. [facility] and when he went home he was weak and SOB. He came to ER here and was noted to be hyperkalemic 6.1 and bradycardia in the 50s. his BP was apparently low and he was started on levophed which has now been turned off since yesterday and his BP is now in the 140s-150s systolic.It was thought his initial hypotension may have been due to BP medications he took prior to arrival which lowered the BP. He is ESRD on HD and thus nephrology was consulted and he was dialyzed here in the hospital now his K has normalized post dialysis. His HR was in the 50s however now has normalized in the 60s and he was given glucagon for possible beta scottie overdose. His CXR showed no evidence of PNA and WBC remained normal with no evidence if infection. He is on supplemental o2 saturating at >90%. Patient is weak and unable to care for him at home given his condition. He will be discharged to SNF for continued physical therapy and HD 3x/week as per his normal schedule. [facility] to arrange for SNF bed and transport Treatment Plan Discharge Condition of Discharge Good Disposition [facility] Facility Discharge Instructions Diet: Consistent carbohydrate, Cardiac 2g Na,low cholest Activity: No Restrictions, As Tolerated Medications: see med sheet Follow Up Care Follow Up/Referral: pcp via [facility] Discharge Statement: "Patient was advised to return to the ER or call 911 if any headaches, dizziness, shortness of breath, chest pain, abdominal pain, bleeding, fevers, or worsening of medical condition. Patient was counseled about treatment plan, medications, possible side effects, patientverbalized understanding. All questions were answered to the best of my ability. This discharge took greater then 30 minutes in planning, reviewing documentation, counseling the patient, and discussing with other team members." ALVAREZ KILGORE MD August 24, 2024 07:43
[2024-08-24 08:30] VITALS: RESP 17
[2024-08-24 08:33] VITALS: BP 162/77; PULSE 59; RESP 16; TEMP 98.1; O2SAT 99
--- NOTE | 2024-08-24 09:24 | DVHPN2 ---
Progress Note Date Seen: August 24, 2024 Medical Necessity Reason Pt with a Central, PICC or Fol: No Subjective Patient reports: No new complaints Other Systems: Patient seen and examined by myself today in follow-up Objective vital signs Vital Sign Date Time Temp Pulse Resp B/P (MAP) Pulse Ox O2 Delivery O2 Flow Rate FiO2 08/24/24 08:33 98.1 59 16 162/77 (105) 99 98.1 08/24/24 00:00 Nasal Cannula* 4 36 Total Intake and Output 08/23/24 08/23/24 08/24/24 15:00 23:00 07:00 Intake Total 55.813 ml 540.388 ml Output Total 0 ml 4000 ml Balance 55.813 ml -3459.612 ml medications Current Medications Medications Dose Ordered Sig/Phani Route Start Time Stop Time Status Last Admin Dose Admin Acetaminophen 325 mg Q4HP PRN PO 08/22/24 17:30 Acetaminophen/ Hydrocodone Bitart 1 tab Q4HP PRN PO 08/22/24 17:30 08/23/24 16:11 1 TAB Nitroglycerin 0.4 mg Q5MINP PRN SL 08/22/24 17:30 Morphine Sulfate 2 mg Q30M PRN IV 08/22/24 17:30 Dextrose/Sodium Chloride 1,000 ml @ 50 mls/hr Q20H IV 08/22/24 20:15 UNV Dopamine HCl/ Dextrose 250 ml @ 14.438 mls/ hr [id number] IV 08/22/24 21:45 08/22/24 21:36 5.775 MLS/HR Norepinephrine Bitartrate 250 ml @ 3.75 mls/hr Q24H IV 08/22/24 21:45 08/22/24 21:51 15 MLS/HR Piperacillin Sod/ Tazobactam Sod 50 ml @ 12.5 mls/hr Q8H IV 08/23/24 14:30 08/24/24 06:26 12.5 MLS/HR Hydralazine HCl 10 mg Q6HP PRN IV 08/23/24 19:15 Diagnostic Test (Pha) 1 strip AC 08/23/24 19:00 08/24/24 06:49 1 STRIP Insulin Human Regular AC SC 08/23/24 19:00 08/23/24 19:19 3 UNITS Dextrose 50 ml UD PRN IV 08/23/24 19:15 Examination: LUNGS:Normal, CVS:Normal, MSK:Normal laboratory and microbiology Laboratory Tests 08/24/24 05:00 Test 08/24/24 05:00 Range/Units Serum Glucose 172 H 74-106 mg/dL Microbiology Date/Time Source Procedure Growth Status 08/23/24 12:55 Nose MRSA Screen - Final Complete Problem List/Assessment/Plan Problem List/Assessment/Plan End-stage renal disease on hemodialysis Generalized weakness Hypotension Bradycardia Chronic Congestive heart failure Hyperkalemia due to dietary indiscretion Diabetes mellitus type 2 Anemia of chronic kidney disease Recommendations Hemodialysis tomorrow Epogen 15044 subQ 3 times weekly Midodrine 10 mg p.o. t.i.d. Insulin sliding scale Renal diet Cardiology consult We will continue to follow Plan discussed with: Patient YVONNE JONES MD August 24, 2024 09:24
[2024-08-24 12:50] VITALS: BP 164/82; PULSE 60; RESP 16; TEMP 97.9; O2SAT 98
--- NOTE | 2024-08-24 14:48 | ECG ---
[facility] Test Date: 2024-08-22 Test Time: 20:56:34 Pat Name: MARY RO Department: ED Room: 0221T A Gender: M Supervisor Cellars: john : [id number] Requested By: SHRUTI CALZADA Order Number: [id number] Reading MD: Chris Mora Measurements Intervals [place] Rate: 42 P: 31 ND: 210 QRS: 23 QRSD: 87 T: 71 QT: 599 QTc: 501 Interpretive Statements Sinus bradycardia Low voltage, extremity leads Prolonged QT interval Electronically Signed On 08-28-2024 11:23:58 PDT by Chris Mora Please click the below link to view image of tracing.
[2024-08-24] MEDS ORDERED: CARV12.544 PO (15:56)
[2024-08-24] MEDS ORDERED: ASPI-543 PO (15:56)
[2024-08-24] MEDS ORDERED: CHOL20007 OR (15:56)
[2024-08-24] MEDS ORDERED: GABA300T4 PO (15:56)
[2024-08-24] MEDS ORDERED: ALLO100T PO (15:56)
[2024-08-24] MEDS ORDERED: NIFE1TAB31 PO (15:56)
[2024-08-24] MEDS ORDERED: ISOS5TAB PO (15:56)
[2024-08-24] MEDS ORDERED: ATOR20TA50 PO (15:56)
[2024-08-24] MEDS ORDERED: SEVE800T8 PO (15:56)
[2024-08-24] MEDS ORDERED: INSU100I49 SC (15:56)
[2024-08-24 16:46] VITALS: BP 169/74; PULSE 66; RESP 16; TEMP 98; O2SAT 97
[2024-08-24 18:30] VITALS: BP 158/73; PULSE 60; RESP 17; TEMP 98.2; O2SAT 98
--- NOTE | 2024-08-24 21:53 | DVHPN2 ---
Progress Note - Dictate Date Seen: August 24, 2024 Medical Necessity Reason Pt with a Central, PICC or Fol: No vital signs Vital Sign Date Time Temp Pulse Resp B/P (MAP) Pulse Ox O2 Delivery O2 Flow Rate FiO2 08/24/24 18:30 98.2 60 17 158/73 (101) 98 98.2 08/24/24 08:30 Nasal Cannula* 3 32 Total Intake and Output 08/23/24 08/23/24 08/24/24 15:00 23:00 07:00 Intake Total 55.813 ml 540.388 ml Output Total 0 ml 4000 ml Balance 55.813 ml -3459.612 ml medications Current Medications Medications Dose Ordered Sig/Phani Route Start Time Stop Time Status Last Admin Dose Admin Dextrose/Sodium Chloride 1,000 ml @ 50 mls/hr Q20H IV 08/22/24 20:15 UNV laboratory and microbiology Laboratory Tests 08/24/24 05:00 Test 08/24/24 05:00 Range/Units Serum Glucose 172 H 74-106 mg/dL Assessment/Plan Diagnoses Acute hypoxemic respiratory failure Pleural effusions Congestive heart failure Pulmonary edema Patient seen and examined in the emergency room events s/p downgrade improving no distress Fall respiratory status tenuous Labs and imaging studies reviewed Recommendations/management plan cont HD Monitor renal function replace electrolytes supplemental oxygen keep sats above 90% prn bipap Titrate settings to keep O2 sats above 90% ok to withold abx Bronchodilators Supportive care Plan discussed with: Patient HARSH GARVIN MD August 24, 2024 21:53
[2024-08-25] MEDS ORDERED: SODIUM CHL 0.9% 1000 ML BAG XX ONE (07:00)
[2024-08-25] MEDS ORDERED: EPOETIN ALFA-EPBX 10,000 UNIT/1ML VIAL SC ONE (21:00)
--- NOTE | 2024-08-25 23:32 | DVHSR ---
APPROVED REPORT EXAM: Two-dimensional and M-mode echocardiogram with Doppler and color Doppler. Blood Pressure: 115/59 mmHg INDICATION Bradycardia RISK FACTORS Height: 5' 9", Weight: 169 DIMENSIONS LVDd5.4 (3.8-5.7cm)LA (2D)4.6 (1.9-4.0cm)Aortic Root3.6 (2.0-3.7cm) LVDs3.8 (2.5-4.0cm)LA (MM) (1.9-4.0cm)Aortic Cusp Exc1.9 (1.5-2.0cm) EF (%) 56.0 (55-70%)Rt. Atrium4.3 (1.9-4.0cm)Asc. Aorta cm IVSd1.3 (0.7-1.1cm)RV (D) (1.8-2.4cm) PWd1.2 (0.7-1.1cm) Mitral Valve MitralMitral Stenosis E wave1.40m/sMV Mean GR.mmHg A wave0.60m/sMV Peak GR.mmHg E/A ratio2.32D MVAcm2 Aortic Valve Aortic ValveAortic Stenosis V11.00m/Mariella Mean GR.3mmHg V21.20m/Mariella Peak GR.6mmHg LVOT Diameter2.3 (1.8-2.4cm)Doppler AVA3.46cm2 Pulmonic Valve V20.80m/s Conclusion LV EF IS 65% NORMAL VALVES NO EFFUSION NORMAL RV FUNCTION MILD MR MODERATELY DILATED LA
== END 2024-08-24 18:20 | DRG 640 ==
LOC: ER 13:44 → OVERFLOW 17:18 → TELE-CENTR 08-24 08:16
PROVIDERS: ADMIT Student in an Organized Health Care Education/Training Program; ATTEND Student in an Organized Health Care Education/Training Program
PROC: 5A1D70Z Performance of Urinary Filtration, Intermittent, Less than 6 Hours Per Day (ICD-10-PCS; principal; 2024-08-23)
DX: E87.5 Hyperkalemia (principal); N18.6 End stage renal disease; J98.11 Atelectasis; I13.2 Hypertensive heart and chronic kidney disease with heart failure and with stage 5 chronic kidney disease, or end stage renal disease; I50.32 Chronic diastolic (congestive) heart failure; T44.7X1A Poisoning by beta-adrenoreceptor antagonists, accidental (unintentional), initial encounter; D63.1 Anemia in chronic kidney disease; E11.22 Type 2 diabetes mellitus with diabetic chronic kidney disease; R00.1 Bradycardia, unspecified; M10.9 Gout, unspecified; E11.51 Type 2 diabetes mellitus with diabetic peripheral angiopathy without gangrene; E11.649 Type 2 diabetes mellitus with hypoglycemia without coma; Z99.2 Dependence on renal dialysis; I95.2 Hypotension due to drugs; Y92.89 Other specified places as the place of occurrence of the external cause
CPT/HCPCS: 36415; 36600; 71045; 80048; 80053; 82805; 82962; 83036; 83880; 84100; 84443; 84484; 85025; 87040; 87081; 87340; 90935; 93005; 93306; 94640; 96365; 96375; 96376; 97116; 97163; 97530; 99291; G0378; J1815; J2543